=== PATIENT | female | born 1960 | race Caucasian/White ===

== ENCOUNTER 2016-10-05 13:36 | Emergency (ER) | payer OTHER ==
[~2016-10-05] VITALS: Ht 165.1 cm; Wt 96.0 kg
[2016-10-05] MEDS ORDERED: AUGMENTIN875 MG PO (14:25)
[2016-10-05] MEDS ORDERED: MOTRIN600 MG PO (15:39)
[2016-10-05 15:48] VITALS: BP 161/95
== END 2016-10-05 15:50 | disposition home or self-care (01) ==
LOC: EME 13:36
PROC: 3E0234Z Introduction of Serum, Toxoid and Vaccine into Muscle, Percutaneous Approach (ICD-10-PCS; principal; 2016-10-05)
DX: S51.852A Open bite of left forearm, initial encounter (principal); S50.872A Other superficial bite of left forearm, initial encounter; S60.572A Other superficial bite of hand of left hand, initial encounter; S40.871A Other superficial bite of right upper arm, initial encounter; W54.0XXA Bitten by dog, initial encounter; Z23 Encounter for immunization; Z87.891 Personal history of nicotine dependence
CPT/HCPCS: 73090; 73130; 99281; 99284